=== PATIENT | female | born 1940 | race Caucasian/White ===

== ENCOUNTER → 2018-05-05 | Outpatient (CLI) | payer MEDICARE, BC ==
[~2018-05-05] MED LIST: ANAS1 PO; Antivert25 MG PO; Ativan1 MG PO; CHLO25B; CHOL10002; CLON.5; CYCL10; GABA100 PO; GLUC500; IBUP600 PO; LOPE2C; MAGCHL64ER; MECL25 PO; METCAR750 PO; Multivitamin1 EAC1; NASACORT10.8 ML; OMEP20ER PO; ONDA8 PO; POTA10T; Phenergan25 MG; SIMV10; VERA120ERB PO; Zofran Odt4 MG SL
== END | disposition home or self-care (01) ==
LOC: LAB 11:44 → LAB SHORT 11:44
PROVIDERS: Obstetrics & Gynecology Gynecology
DX: Z91.89 Other specified personal risk factors, not elsewhere classified (principal)
CPT/HCPCS: 87624; G0123

== ENCOUNTER → 2019-05-18 | Outpatient (CLI) | payer MEDICARE ==
[2019-05-20 16:07] LABS: HPV 16 Negative (Negative); HPV 18 Negative (Negative); HPV OTHER HR TYPES Negative (Negative)
== END | disposition home or self-care (01) ==
LOC: LAB SHORT 17:23 → LAB 17:23
PROVIDERS: Obstetrics & Gynecology Gynecology
DX: Z91.89 Other specified personal risk factors, not elsewhere classified (principal)
CPT/HCPCS: 87624; G0123

== ENCOUNTER → 2021-05-17 | Outpatient (CLI) | payer MEDICARE ==
[~2021-05-17] MED LIST changes: +ANASTROZOLE PO; +ASPIR 8181 MG PO; +BISA5EC PO; +CLON.5 PO; +CYCL10 PO; +EPIPEN0.3 MG/0.1 IM; +GLUC500 PO; +Hygroton50 MG; +IBU600 MG PO; +K-Dur20 MEQ; +MULTIPLE VITAM1 EACH PO; +ONDA4 PO; +PHENERGAN25 MG PR; +VERAPAMIL SR240 M1 PO; +VITAMIN D31000 UNI1 PO
[2021-05-18 09:02] LABS: Candida species (DNA Probe) Negative (NEGATIVE); G. vaginalis (DNA Probe) Negative (NEGATIVE); T. vaginalis (DNA Probe) Negative (NEGATIVE)
== END ==
LOC: LAB 18:38 → LAB SHORT 18:38
PROVIDERS: Family Medicine
DX: N95.2 Postmenopausal atrophic vaginitis (principal); Z88.2 Allergy status to sulfonamides
CPT/HCPCS: 87480; 87510; 87660

== ENCOUNTER → 2022-11-14 | Outpatient (CLI) | payer MEDICARE | END | disposition home or self-care (01) | LOC: PLD 11:43 → LAB 11:43 → LAB SHORT 11:43 | DX: L57.0 Actinic keratosis (principal) | CPT/HCPCS: 88305 ==

== ENCOUNTER → 2023-05-19 | Outpatient (CLI) | payer MEDICARE ==
[~2023-05-19] MED LIST changes: +Ativan1 MG; +KLOR-CON 1010 ME9
== END ==
LOC: LAB SHORT 16:44 → LAB 16:44
DX: C44.622 Squamous cell carcinoma of skin of right upper limb, including shoulder (principal)
CPT/HCPCS: 88305

== ENCOUNTER → 2023-08-19 | Outpatient (CLI) | payer MEDICARE ==
[2023-08-19 15:05] LABS: Bun/Creatinine Ratio 28.3 (12.0-20.0); Calcium, Blood 9.2 mg/dL (8.5-10.1); Creatinine, Blood 0.99 mg/dL (0.40-1.00); Potassium, Blood 4.3 mmol/L (3.5-5.5)
== END | disposition home or self-care (01) ==
LOC: LAB 12:47 → LAB SHORT 12:47
PROVIDERS: Registered Nurse Oncology
DX: C50.919 Malignant neoplasm of unspecified site of unspecified female breast (principal); N18.9 Chronic kidney disease, unspecified; M81.0 Age-related osteoporosis without current pathological fracture
CPT/HCPCS: 80048

== ENCOUNTER → 2023-11-11 | Outpatient (CLI) | payer MEDICARE ==
[2023-11-11 15:52] LABS: BASOPHILS ABSOLUTE AUTO 0.01 K/mm3 (0.00-0.23); BASOPHILS PERCENT AUTO 0 % (0-2); EOSINOPHILS ABSOLUTE AUTO 0.11 K/mm3 (0.00-0.68); EOSINOPHILS PERCENT AUTO 2 % (0-6); Hematocrit 39.5 % (33.0-51.0); Hemoglobin 12.8 g/dL (11.5-16.0); IMMATURE GRAN ABSOLUTE AUTO 0.01 K/mm3 (0.00-0.10); IMMATURE GRAN PERCENT AUTO 0 % (0-1); LYMPHOCYTES ABSOLUTE AUTO 1.16 K/mm3 (0.84-5.20); LYMPHOCYTES PERCENT AUTO 19 % (21-46); MONOCYTES ABSOLUTE AUTO 0.53 K/mm3 (0.16-1.47); MONOCYTES PERCENT AUTO 9 % (4-13); Mean Corpuscular HGB 29.3 pg (26.0-34.0); Mean Corpuscular HGB Conc 32.4 g/dL (31.5-36.5); Mean Corpuscular Volume 90 fL (80-100); Mean Platelet Volume 10.3 fL (9.1-12.4); NEUTROPHILS ABSOLUTE AUTO 4.23 K/mm3 (1.96-9.15); NEUTROPHILS PERCENT AUTO 70 % (41-73); Platelet Count 162 K/mm3 (150-400); RDW Coefficient Variation 13.3 % (11.7-14.2); RDW Standard Deviation 44.3 fL (35.1-46.3); Red Blood Cell Count 4.37 M/mm3 (3.80-5.20); White Blood Cell Count 6.05 K/mm3 (4.00-11.30)
[2023-11-13 08:11] LABS: A/G RATIO 2.4 (1.2-2.2); BILIRUBIN, TOTAL 0.3 mg/dL (0.0-1.2); CALCIUM, SERUM 9.6 mg/dL (8.7-10.3); CREATININE, SERUM 1.06 mg/dL (0.57-1.00); GLOBULIN, TOTAL 1.8 g/dL (1.5-4.5); POTASSIUM, SERUM 4.3 mmol/L (3.5-5.2); PROTEIN, TOTAL, SERUM 6.2 g/dL (6.0-8.5)
== END | disposition home or self-care (01) ==
LOC: LAB 13:00 → LAB SHORT 13:00
PROVIDERS: Family Medicine
DX: I77.6 Arteritis, unspecified (principal)
CPT/HCPCS: 80053; 85025; 85651; 86140

== ENCOUNTER 2023-12-05 20:29 | Observation (INO) | payer MEDICARE ==
[~2023-12-05] VITALS: Ht 165.1 cm; Wt 69.4 kg
[~2023-12-05 20:29] MED LIST changes: -HYDR1TAB94 PO; -PANTOPRAZOLE SO PO
[2023-12-06] VITALS (16 sets, daily range): BP systolic 105–152; BP diastolic 51–81
[2023-12-06] MEDS ORDERED: Ondansetron HCl 2 MG / ML 2ML Vial IV PRN (02:00)
[2023-12-06] MEDS ORDERED: FLU VACC QS2023-24(6MOS UP)/PF 60 MCG/0.5 ML SYRINGE IM ONE (02:00)
[2023-12-06] MEDS ORDERED: FentaNYL Citrate 50 MCG/ML 2 ML Injection IV PRN ×3 (02:00→09:55)
[2023-12-06] MEDS ORDERED: NS 1,000 ML IV SCH (02:00)
[2023-12-06 02:03] LABS: BASOPHILS ABSOLUTE AUTO 0.04 K/mm3 (0.00-0.23); BASOPHILS PERCENT AUTO 1 % (0-2); EOSINOPHILS ABSOLUTE AUTO 0.13 K/mm3 (0.00-0.68); EOSINOPHILS PERCENT AUTO 2 % (0-6); Hematocrit 35.7 % (33.0-51.0); IMMATURE GRAN ABSOLUTE AUTO 0.02 K/mm3 (0.00-0.10); IMMATURE GRAN PERCENT AUTO 0 % (0-1); LYMPHOCYTES ABSOLUTE AUTO 0.96 K/mm3 (0.84-5.20); LYMPHOCYTES PERCENT AUTO 12 % (21-46); MONOCYTES ABSOLUTE AUTO 0.84 K/mm3 (0.16-1.47); MONOCYTES PERCENT AUTO 10 % (4-13); Mean Corpuscular HGB 29.9 pg (26.0-34.0); Mean Corpuscular HGB Conc 33.6 g/dL (31.5-36.5); Mean Corpuscular Volume 89 fL (80-100); Mean Platelet Volume 10.2 fL (9.1-12.4); NEUTROPHILS ABSOLUTE AUTO 6.13 K/mm3 (1.96-9.15); NEUTROPHILS PERCENT AUTO 76 % (41-73); Platelet Count 147 K/mm3 (150-400); RDW Coefficient Variation 12.9 % (11.7-14.2); Red Blood Cell Count 4.02 M/mm3 (3.80-5.20); White Blood Cell Count 8.12 K/mm3 (4.00-11.30)
[2023-12-06] MEDS ORDERED: NS 1,000 ML IV ONE (02:12)
[2023-12-06] MEDS ORDERED: Ampicillin Sod/Sulbactam Sod 1.5 GM in NS 50 ML IV SCH (02:15)
[2023-12-06 02:24] LABS: Albumin, Blood 3.2 g/dL (3.4-5.0); Albumin/Globulin Ratio 0.8 (0.8-1.8); Bilirubin, Total 0.5 mg/dL (0.1-1.0); Bun/Creatinine Ratio 31.2 (12.0-20.0); Calcium, Blood 9.1 mg/dL (8.5-10.1); Creatinine, Blood 0.77 mg/dL (0.40-1.00); Globulin, Blood 4.1 g/dL (2.2-4.0); Potassium, Blood 3.2 mmol/L (3.5-5.5); Total Protein, Blood 7.3 g/dL (6.4-8.2)
[2023-12-06] MEDS ORDERED: RX Prepack Albuterol 1 PREPACK/6.7 GM INH UD ONE (03:00)
[2023-12-06 03:19] LABS: International Normalized Ratio 1.14; Prothrombin Time Results 11.9 Sec (9.7-11.5)
--- NOTE | 2023-12-06 04:45 | NUR ---
ARRIVAL TO UNIT PT ARRIVED VIA WHEELCHAIR FROM ED. A&O x4. AMBULATES INDEPENDENTLY. PT TOILETS/DRESSES INDEPENDENTLY. PT NAUSEOUS. REPORTS MINIMAL RUQ PAIN AT THIS TIME. NPO PER ORDERS. IV REPLACEMENT FLUIDS INFUSING PER EMAR. ORIENTED TO ROOM, CALL LIGHT IN REACH, BED IN LOWEST POSITION.
[2023-12-06] MEDS ORDERED: PANTOPRAZOLE SO PO (05:02)
[2023-12-06] MEDS ORDERED: Potassium Chloride 40 MEQ in NS 250 ML IV ONE (06:05)
[2023-12-06] MEDS ORDERED: ClonazePAM 0.5 MG Tab PO PRN (06:45)
[2023-12-06] MEDS ORDERED: Pantoprazole Sodium 20 MG Tab PO SCH (06:49)
[2023-12-06] MEDS ORDERED: Misc. Nasal Solution PRN (06:55)
--- NOTE | 2023-12-06 08:13 | NUR ---
SHIFT SUMMARY S/P ACUTE CHOLECYSITITIS. NO ACUTE CHANGES OVERNIGHT. VS WNL FOR PT. NPO PER ORDERS, IV FLUIDS INFUSING PER EMAR. PT REPORTED MINIMAL PAIN R/T HEADACHE & ABD. VOIDS/AMBULATES INDEPENDENTLY. 1 EPISODE OF EMESIS, PT GIVEN ANTI-NAUSEA MEDS PER EMAR, PT REPORTS RELIEF OF SYMPTOMS. ANTICIPATED SURGERY LATER TODAY. CALL LIGHT IN REACH, BED IN LOWEST POSITION, REPORT GIVEN TO DAY RN.
[2023-12-06] MEDS ORDERED: Gabapentin 100 MG Cap PO SCH (09:00)
[2023-12-06] MEDS ORDERED: Aspirin 81 MG TabEC PO SCH (09:00)
[2023-12-06] MEDS ORDERED: propofoL 20 ML IV ONE (09:36)
[2023-12-06] MEDS ORDERED: FentaNYL Citrate 50 MCG/ML 2 ML Injection ONE ×2 (09:36→11:57)
[2023-12-06] MEDS ORDERED: Midazolam HCl 1MG / ML 2ML Vial ONE (09:36)
[2023-12-06] MEDS ORDERED: Rocuronium Bromide 10 MG/ML 5ML Injection IV ONE (09:38)
--- NOTE | 2023-12-06 09:41 | NUR ---
PT TAKEN TO DAY SURGERY BY SERENA GARSIA. SERENA AND JEMIMA NOTIFIED THAT PT STILL NEEDS TO HAVE PRE-OP WASH AND WILL NEED A NEW IV. SERENA AND JEMIMA CONFIRMED THEY WOULD COMPLETE PRE-OP WASH. EKG COMPLETED AND SENT TO OR FOR REVIEW BY DR. HERNANDEZ PER HIS REQUEST.
[2023-12-06] MEDS ORDERED: Lactated Ringer's 1,000 ML IV ONE (09:51)
[2023-12-06] MEDS ORDERED: Labetalol HCL 5 MG/ML 4ML Injection (Single Dose) IV PRN (09:55)
--- NOTE | 2023-12-06 09:58 | NUR ---
PRE-OP NOTE PT A&OX4, BREATHING RA, NO COMPLAINTS. PT PERFORMED PRE-OP SCRUB AND MOUTH WASH PER PRE-OP PROTOCOL. Patient confirms NPO status and agrees with scheduled surgery. Pre-Op teaching done. Pt verbalizes understanding.
[2023-12-06] MEDS ORDERED: Metoclopramide HCl 5MG / ML 2ML Vial IV PRN (10:00)
[2023-12-06] MEDS ORDERED: Morphine Sulfate 4 MG/1 ML Injection IV PRN (10:00)
--- NOTE | 2023-12-06 10:02 | NUR ---
UNABLE TO COMPLETE HOME MED REC. PT DOES NOT HAVE A LIST OF HOME MEDICATIONS AND HER PHARMACY IS CLOSED FOR THE WEEKEND.
[2023-12-06] MEDS ORDERED: Bupivacaine 0.5% HCl 5 MG/ML 30MLVIAL ONE (10:19)
[2023-12-06] MEDS ORDERED: Ketorolac Tromethamine 30mg Vial ONE (10:48)
[2023-12-06] MEDS ORDERED: Ondansetron HCl 2 MG / ML 2ML Vial ONE (10:48)
[2023-12-06] MEDS ORDERED: Dexamethasone Sod Phos 10 MG/ML 1ML VIAL ONE (10:48)
--- NOTE | 2023-12-06 11:03 | NUR ---
12/06/23 1103 Courtney Dangelo NO PREOP ANTIBIOTICS ORDERED PER PATIENT IS ON SCHEDULED UNASYN.
[2023-12-06] MEDS ORDERED: HYDROmorphone HCl/Pf 1MG SYR IV PRN (12:35)
[2023-12-06] MEDS ORDERED: HYDROcodone 5-APAP 325 TAB PO PRN (12:35)
[2023-12-06] MEDS ORDERED: Acetaminophen 325 MG TABLET PO PRN (12:40)
--- NOTE | 2023-12-06 13:20 | NUR ---
PT ARRIVED TO THE ROOM AT APPROXIMATELY 1310 FROM PACU. PT DROWSY BUT WAKES WHEN SPOKEN TO. RESP RATE 12, BUT O2 SATURATION >90% ON RA. RESP, RATE AND EFFORT EVEN AND UNLABORED. LAP SITES CLOSED WITH WOUND GLUE AND OPEN TO AIR.
--- NOTE | 2023-12-06 16:52 | NUR ---
SHIFT SUMMARY PT IS POD#0 FROM [facility] WITH DR. MARTINEZ. PT HAS BEEN DROWSY SINCE SURGERY. VSS. PT HAS HAD SOME MILD NAUSEA, TREATED WITH ZOFRAN. DILAUDID GIVEN FOR PAIN MANAGMENT SINCE PT WAS TO NAUSEATED TO TAKE NORCO. PT IS A 1 ASSIST WHEN OOB. SHE HAS VOIDED POST-OP. PT CALLS APPROPRIATELY, CALL LIGHT WITHIN REACH.
--- NOTE | 2023-12-06 18:04 | NUR ---
FEVER PT HAS A FEVER OF 100.3. PT IS UNDER BLANKETS AND REPORTS FEELING CHILLED. PT GIVEN TYLENOL AND AN INCENTIVE SPIROMETER. PT EDUCATED TO USE INCENTIVE SPIROMETER AND DEMONSTRATED USE. DR. MARTINEZ NOTIFIED OF FEVER.
--- NOTE | 2023-12-06 19:20 | NUR ---
ATTEMPTED BEDSIDE REPORT, PT ON PHONE.
[2023-12-06] MEDS ORDERED: Verapamil HCL 120 MG TABCR PO SCH (21:00)
[2023-12-07 00:13] VITALS: BP 99/51
[2023-12-07 04:16] VITALS: BP 100/57
--- NOTE | 2023-12-07 04:32 | NUR ---
SHIFT SUMMARY PT HAS RESTED MOST OF THE NIGHT. INTERMITTENT ABD PAIN RELIEVED WITH MEDS PER EMAR. NO FEVERS THIS SHIFT. POST OP VITALS ARE STABLE, BLOOD PRESSURES ARE SOFT BUT MAP IS STABLE. PT TOLERATING PO INTAKE, AND IS VOIDING. PLAN IS FOR DISCHARGE TODAY. BED IN LOWEST POSITION, CALL LIGHT WITHIN REACH.
[2023-12-07 04:42] LABS: BASOPHILS ABSOLUTE AUTO 0.02 K/mm3 (0.00-0.23); BASOPHILS PERCENT AUTO 0 % (0-2); EOSINOPHILS ABSOLUTE AUTO 0.06 K/mm3 (0.00-0.68); EOSINOPHILS PERCENT AUTO 1 % (0-6); Hematocrit 33.5 % (33.0-51.0); Hemoglobin 11.1 g/dL (11.5-16.0); IMMATURE GRAN ABSOLUTE AUTO 0.02 K/mm3 (0.00-0.10); IMMATURE GRAN PERCENT AUTO 0 % (0-1); LYMPHOCYTES ABSOLUTE AUTO 0.94 K/mm3 (0.84-5.20); LYMPHOCYTES PERCENT AUTO 12 % (21-46); MONOCYTES ABSOLUTE AUTO 0.61 K/mm3 (0.16-1.47); MONOCYTES PERCENT AUTO 8 % (4-13); Mean Corpuscular HGB 29.5 pg (26.0-34.0); Mean Corpuscular HGB Conc 33.1 g/dL (31.5-36.5); Mean Corpuscular Volume 89 fL (80-100); Mean Platelet Volume 10.1 fL (9.1-12.4); NEUTROPHILS ABSOLUTE AUTO 6.24 K/mm3 (1.96-9.15); NEUTROPHILS PERCENT AUTO 79 % (41-73); Platelet Count 188 K/mm3 (150-400); RDW Coefficient Variation 12.8 % (11.7-14.2); Red Blood Cell Count 3.76 M/mm3 (3.80-5.20); White Blood Cell Count 7.89 K/mm3 (4.00-11.30)
[2023-12-07 05:00] LABS: Albumin, Blood 2.7 g/dL (3.4-5.0); Albumin/Globulin Ratio 0.7 (0.8-1.8); Bilirubin, Total 0.5 mg/dL (0.1-1.0); Bun/Creatinine Ratio 24.4 (12.0-20.0); Calcium, Blood 8.4 mg/dL (8.5-10.1); Creatinine, Blood 0.98 mg/dL (0.40-1.00); Globulin, Blood 3.7 g/dL (2.2-4.0); Potassium, Blood 3.5 mmol/L (3.5-5.5); Total Protein, Blood 6.4 g/dL (6.4-8.2)
[2023-12-07 07:19] VITALS: BP 94/47
[2023-12-07] MEDS ORDERED: HYDR1TAB94 PO (13:04)
[2023-12-07 13:48] VITALS: BP 113/57
--- NOTE | 2023-12-07 14:22 | NUR ---
DISCHARGE SUMMARY PT A&OX4, VSS/RA, CAMPBELL PO, VOIDING, AMB INDEPENDENTLY/SHOWERED/DRESSED SELF, ABD BINDER ON/SPLINTING EDU, PAIN MANAGED, TCDB & I.S. EDU/ENC/DEMONSTRATED, EDU/ENC SHORT FREQUENT AMBULATION. DC INS PROVIDED. PT REP UNDERSTANDING THOSE INSTRUCTIONS. LEFT FLOOR VIA WC WITH OPERATING ROOM NURSE TO GO HOME WITH FRIEND, WITH ALL PERSONAL POSSESSIONS INCLUDING DC PACKET, I.S.; SCRIPT CONFIRMED AT [facility] AND PT WILL [employer]EW[employer] OPER[employer] BEFORE LEAVING TOWN AND HEADING HOME.
== END 2023-12-07 14:15 | disposition home or self-care (01) ==
LOC: ER 20:29 → SURS 20:30
PROVIDERS: Internal Medicine; Surgery; ADMIT Internal Medicine
PROC: 0FT44ZZ Resection of Gallbladder, Percutaneous Endoscopic Approach (ICD-10-PCS; principal; 2023-12-06 08:30)
PROC: BF121ZZ Fluoroscopy of Gallbladder using Low Osmolar Contrast (ICD-10-PCS; principal; 2023-12-06 08:30)
DX: K81.2 Acute cholecystitis with chronic cholecystitis (principal); K21.9 Gastro-esophageal reflux disease without esophagitis; R10.11 Right upper quadrant pain; N20.0 Calculus of kidney; K57.30 Diverticulosis of large intestine without perforation or abscess without bleeding; K82.8 Other specified diseases of gallbladder; Z87.891 Personal history of nicotine dependence; Z88.2 Allergy status to sulfonamides; Z88.8 Allergy status to other drugs, medicaments and biological substances; Z85.3 Personal history of malignant neoplasm of breast
CPT/HCPCS: 36415; 74177; 74300; 76705; 80053; 83615; 83690; 83735; 83880; 85025; 85610; 88304; 93005; 93010; 94760; 96361; 96365; 96366; 96367; 96375; 99284; A9270; C9113; G0378; J0295; J1100; J1170; J1885; J2250; J2405; J2704; J3010; J3480; J7030; J7050; J7120; Q9967

== ENCOUNTER → 2023-12-05 | Outpatient (CLI) | payer MEDICARE ==
[~2023-12-05] MED LIST changes: +HYDR1TAB94 PO; +PANTOPRAZOLE SO PO
[2023-12-05 13:56] LABS: BASOPHILS ABSOLUTE AUTO 0.03 K/mm3 (0.00-0.23); BASOPHILS PERCENT AUTO 0 % (0-2); EOSINOPHILS ABSOLUTE AUTO 0.11 K/mm3 (0.00-0.68); EOSINOPHILS PERCENT AUTO 1 % (0-6); Hematocrit 35.4 % (33.0-51.0); Hemoglobin 11.7 g/dL (11.5-16.0); IMMATURE GRAN ABSOLUTE AUTO 0.01 K/mm3 (0.00-0.10); IMMATURE GRAN PERCENT AUTO 0 % (0-1); LYMPHOCYTES ABSOLUTE AUTO 0.82 K/mm3 (0.84-5.20); LYMPHOCYTES PERCENT AUTO 10 % (21-46); MONOCYTES ABSOLUTE AUTO 0.91 K/mm3 (0.16-1.47); MONOCYTES PERCENT AUTO 12 % (4-13); Mean Corpuscular HGB 29.6 pg (26.0-34.0); Mean Corpuscular HGB Conc 33.1 g/dL (31.5-36.5); Mean Corpuscular Volume 90 fL (80-100); Mean Platelet Volume 10.6 fL (9.1-12.4); NEUTROPHILS ABSOLUTE AUTO 6.03 K/mm3 (1.96-9.15); NEUTROPHILS PERCENT AUTO 76 % (41-73); Platelet Count 179 K/mm3 (150-400); RDW Coefficient Variation 12.8 % (11.7-14.2); RDW Standard Deviation 42.4 fL (35.1-46.3); Red Blood Cell Count 3.95 M/mm3 (3.80-5.20); White Blood Cell Count 7.91 K/mm3 (4.00-11.30)
[2023-12-05 14:15] LABS: Albumin, Blood 3.2 g/dL (3.4-5.0); Albumin/Globulin Ratio 0.8 (0.8-1.8); Bilirubin, Total 0.5 mg/dL (0.1-1.0); Bun/Creatinine Ratio 28.7 (12.0-20.0); Calcium, Blood 9.2 mg/dL (8.5-10.1); Creatinine, Blood 0.98 mg/dL (0.40-1.00); Potassium, Blood 3.8 mmol/L (3.5-5.5); Total Protein, Blood 7.2 g/dL (6.4-8.2)
== END | disposition home or self-care (01) ==
LOC: LAB SHORT 12:56
PROVIDERS: Chiropractor
DX: R10.11 Right upper quadrant pain (principal)
CPT/HCPCS: 80053; 83690; 85025

== ENCOUNTER → 2025-01-29 | Outpatient (CLI) | payer MEDICARE ==
[~2025-01-29] MED LIST changes: +HYDR1TAB94 PO; +PANTOPRAZOLE SO PO
== END ==
LOC: LAB SHORT 15:01 → LAB 15:01
DX: N39.0 Urinary tract infection, site not specified (principal)
CPT/HCPCS: 87077; 87086; 87186